=== PATIENT | female | born 1960 | race Two or more races ===

== ENCOUNTER 2022-03-13 10:07 | Emergency (ER) | payer OTHER ==
[~2022-03-13] VITALS: Ht 157.5 cm; Wt 72.6 kg
[2022-03-13] MEDS ORDERED: NEURONTIN300 MG PO (10:52)
[2022-03-13] MEDS ORDERED: LIPITOR20 MG PO (10:52)
[2022-03-13] MEDS ORDERED: SYNTHROID100 MCG PO (10:52)
[2022-03-13] MEDS ORDERED: ALENDRONATE SODI5 MG PO (11:26)
[2022-03-13] MEDS ORDERED: XELJANZ XR11 MG PO (11:26)
[2022-03-13] MEDS ORDERED: MACROBID 100 M100 MG PO (14:01)
[2022-03-13] MEDS ORDERED: PYRIDIUM DS200 MG PO (14:04)
== END 2022-03-13 14:10 | disposition home or self-care (01) ==
LOC: ER 10:07
DX: N30.00 Acute cystitis without hematuria (principal); B96.89 Other specified bacterial agents as the cause of diseases classified elsewhere; E03.9 Hypothyroidism, unspecified; Z88.8 Allergy status to other drugs, medicaments and biological substances